=== PATIENT | male | born 1985 | race Native Hawaiian/Other Pacific Islander ===

== ENCOUNTER 2017-03-26 16:31 | Outpatient (CLI) | payer OTHER | END 2017-03-26 16:36 | disposition short-term general hospital (02) | LOC: AMB 16:31 | DX: R41.82 Altered mental status, unspecified (principal) | CPT/HCPCS: A0425; A0427 ==

== ENCOUNTER 2017-03-26 16:47 | Emergency (ER) | payer OTHER ==
[~2017-03-26] VITALS: Ht 170.2 cm; Wt 56.7 kg
[2017-03-26 17:29] LABS: PLATELET COUNT 391 K/uL (142-355)
[2017-03-26 17:53] LABS: POTASSIUM 3.4 mmol/L (3.6-5.2); SODIUM 139 mmol/L (136-145)
[2017-03-26 19:09] VITALS: BP 127/92; TEMP 97.9
== END 2017-03-26 19:14 ==
LOC: ED 16:47
PROVIDERS: Emergency Medicine
DX: R41.0 Disorientation, unspecified (principal); F19.10 Other psychoactive substance abuse, uncomplicated; V49.3XXA Car occupant (driver) (passenger) injured in unspecified nontraffic accident, initial encounter
CPT/HCPCS: 36415; 80053; 80307; 80320; 80329; 81000; 82550; 82553; 83605; 84484; 85027; 93005; 96360; 96361; 99284; G0479; J2310; J3490